=== PATIENT | female | born 1975 | race Caucasian/White ===

== ENCOUNTER → 2019-09-18 11:05 | Outpatient (BNVA) | payer OTHER, SELFPAY | PROVIDERS: Family Provider General Practice; PCP General Practice; Visit Provider Registered Nurse | DX: Z01.89 Encounter for other specified special examinations (principal) | CPT/HCPCS: 88175 ==

== ENCOUNTER 2019-12-23 13:30 | Outpatient (CLI) | payer OTHER, SELFPAY ==
--- NOTE | 2019-12-23 13:38 | MM_ITS ---
WS: [id number] BILATERAL DIGITAL SCREENING MAMMOGRAPHY WITH CAD CLINICAL INFORMATION: SCREENING HISTORY: Screening mammogram. No current complaints. COMPARISON: None. TECHNIQUE: Bilateral CC and MLO views. FINDINGS: Scattered fibroglandular densities bilaterally. No suspicious focal mass, asymmetry, calcifications, or architectural distortion. No evidence of malignancy. MM/[id number] IMPRESSION: BI-RADS: 1-Negative FOLLOW UP: 1 Year Follow-up Recommend return to annual screening mammography.
== END 2019-12-23 13:31 | disposition home or self-care (01) ==
LOC: RADSHAW 13:37
PROVIDERS: PCP Registered Nurse; Visit Provider Registered Nurse
DX: Z12.31 Encounter for screening mammogram for malignant neoplasm of breast (principal)
CPT/HCPCS: 77067

== ENCOUNTER → 2021-02-18 11:23 | Outpatient (BNVA) | payer OTHER, SELFPAY | PROVIDERS: PCP Registered Nurse; Visit Provider Surgery Plastic and Reconstructive Surgery | DX: R53.83 Other fatigue (principal) | CPT/HCPCS: 80053; 80061; 82306; 82607; 83036; 84436; 84443; 84480; 85025 ==

== ENCOUNTER → 2021-05-18 11:22 | Outpatient (BNVA) | payer OTHER, SELFPAY | PROVIDERS: PCP Registered Nurse; Visit Provider Registered Nurse | DX: N39.0 Urinary tract infection, site not specified (principal); R39.9 Unspecified symptoms and signs involving the genitourinary system; B35.1 Tinea unguium; A49.9 Bacterial infection, unspecified | CPT/HCPCS: 80053; 81000 ==

== ENCOUNTER 2022-04-18 14:38 | Outpatient (CLI) | payer OTHER, SELFPAY ==
--- NOTE | 2022-04-18 15:07 | MM_ITS ---
WS: [id number] BILATERAL 3D TOMOSYNTHESIS DIGITAL SCREENING MAMMOGRAPHY WITH CAD CLINICAL INFORMATION: SCREENING HISTORY: Screening mammogram. No current complaints. COMPARISON: December 23, 2019 TECHNIQUE: Bilateral CC and MLO views. FINDINGS: Interval bilateral breast reduction. Scattered fibroglandular densities bilaterally. Coarse calcifications both breasts likely due to fat necrosis from interval breast reduction. No suspicious focal mass, asymmetry, calcifications, or arch itectural distortion. No evidence of malignancy. MM/[place] [id number] IMPRESSION: BI-RADS: 2-Benign FOLLOW UP: 1 Year Follow-up Recommend return to annual screening mammography.
== END 2022-04-18 14:39 | disposition home or self-care (01) ==
PROVIDERS: PCP Registered Nurse; Visit Provider Registered Nurse
DX: Z12.31 Encounter for screening mammogram for malignant neoplasm of breast (principal)
CPT/HCPCS: 77063; 77067

== ENCOUNTER → 2022-09-02 12:42 | Outpatient (BNVA) | payer OTHER, SELFPAY | PROVIDERS: PCP Registered Nurse; Visit Provider Podiatrist Foot & Ankle Surgery | DX: L60.3 Nail dystrophy (principal); B35.1 Tinea unguium | CPT/HCPCS: 36415; 80053 ==

== ENCOUNTER → 2022-10-07 08:45 | Outpatient (BNVA) | payer OTHER, SELFPAY | PROVIDERS: PCP Registered Nurse; Visit Provider Podiatrist Foot & Ankle Surgery | DX: B35.1 Tinea unguium (principal) | CPT/HCPCS: 36415; 80053 ==

== ENCOUNTER → 2023-06-06 09:55 | Outpatient (BNVA) | payer OTHER, SELFPAY | PROVIDERS: PCP Registered Nurse; Visit Provider Podiatrist Foot & Ankle Surgery | DX: L60.3 Nail dystrophy (principal); L60.0 Ingrowing nail | CPT/HCPCS: 11750; A6219 ==

== ENCOUNTER → 2023-06-20 09:38 | Outpatient (BNVA) | payer OTHER, SELFPAY | PROVIDERS: PCP Registered Nurse; Visit Provider Podiatrist Foot & Ankle Surgery | DX: L60.0 Ingrowing nail (principal) | CPT/HCPCS: 99213 ==

== ENCOUNTER 2023-08-16 08:51 | Outpatient (CLI) | payer OTHER, SELFPAY ==
--- NOTE | 2023-08-16 08:55 | MM_ITS ---
WS: [id number] BILATERAL SCREENING DIGITAL TOMOSYNTHESIS MAMMOGRAM WITH CAD HISTORY: SCREENING COMPARISON: 12/23/2019 and 04/18/2022 Bilateral CC and MLO views with tomosynthesis and synthetic mammography submitted. Computer aided det ection analyzed. Breast composition: There are scattered areas of fibroglandular density. No suspicious masses, microc alcifications or architectural distortion. There are numerous bilateral peripherally calcified masses within each breast. These are most consistent with oil cysts related to necrosis. Calcification avila en is increasing but still appears benign. IMPRESSION: MM/[place] [id number] BI-RADS: 2-Benign FOLLOW UP: 1 Year Follow-up
== END 2023-08-16 08:52 | disposition home or self-care (01) ==
LOC: RAD 08:52
PROVIDERS: PCP Registered Nurse; Visit Provider Registered Nurse
DX: Z12.31 Encounter for screening mammogram for malignant neoplasm of breast (principal); R92.323 Mammographic fibroglandular density, bilateral breasts; R92.1 Mammographic calcification found on diagnostic imaging of breast
CPT/HCPCS: 77063; 77067

== ENCOUNTER 2024-01-13 16:15 | Emergency (ER) | payer OTHER, SELFPAY ==
[2024-01-13 16:32] VITALS: BP 92/69; PULSE 77; RESP 17; TEMP 36.6; O2SAT 94; BMI 32.9
--- NOTE | 2024-01-13 16:37 | ECG_ITS ---
[facility] Test Date: 2024-01-13 Pat Name: Suri Bhandari Department: Room: Gender: Female Pattern Marker: : 1975 Requested By: Rylee Davison Order Number: [id number] Raúl MD: Derek Cadet M.D. Measurements Intervals [place] Rate: 68 P: 14 IN: 145 QRS: 44 QRSD: 85 T: -5 QT: 370 QTc: 395 Interpretive Statements SINUS RHYTHM POSSIBLE RIGHT VENTRICULAR CONDUCTION DELAY [RSR (QR) IN V1/V2] NONSPECIFIC T-WAVE ABNORMALITY No previous ECG available for comparison Electronically Signed On 01-14-2024 19:21:14 CDT by Derek Cadet M.D. [id number]
--- NOTE | 2024-01-13 16:48 | ED_ITS ---
HPI - Allergic Reaction 2 General: Chief complaint: Allergic Reaction Stated complaint: possible allergic reaction Time Seen by Provider: 01/13/24 16:29 Source: patient Mode of arrival: ambulatory Limitations: no limitations History of Present Illness: HPI narrative: 48-year-old female states that she fell like she had allergic reaction today she states started to feel flushed she had some hives and started feeling lightheaded and folic she was going to pass out. states that she had almost fell and had caught her she had been out in the heat today as well states she is feeling improved currently but still having some lightheadedness. She never did fully pass out she denies any chest pain denies any headache Associated symptoms: Deny abdominal pain, nausea or vomiting Review of Systems 2 Const: Denies: fever(s), chills, body aches or change in appetite Eyes: Denies: blurry vision or eye discomfort ENMT: Denies: throat pain or dental pain Card: Reports: pre-syncope; Denies: chest pain Resp: Denies: dyspnea GI: Denies: abdominal pain, nausea, vomiting or diarrhea Musc: Denies: neck pain or back pain Skin/Breast: Denies: rash Neuro: Denies: headache(s) PFSH ED 2 PFSH: Surgical History History of cholecystectomy History of tubal ligation Family History Other Cancer Social History Alcohol intake: never Substance/Drug Use: never Adopted: No Caregiver/support person: No Lives independently: Yes Household members: spouse Marital status: service: No Current occupational status: unemployed and other Details: house Current occupational exposures/hazards: No Sexually active: Yes Do you think of yourself as: Straight/Heterosexual Current gender identity: Female Physical Exam 2 Const: COMMON NORMALS: no acute distress, patient oriented x3 and healthy appearing HENMT: COMMON NORMALS: normocephalic and atraumatic HEAD & SCALP: n ormocephalic and atraumatic Eye: COMMON NORMALS: Equal, round and reactive pupils present and EOMs intact bilaterally PUPIL: Yes Equal, round and reactive pupils present Neck/C-Spine: COMMON NORMALS: full ROM and supple Chest: COMMONS NORMALS: normal inspection of the chest and normal palpation of entire chest wall Resp: COMMON NORMALS: normal respiratory effort, No retractions, No use of accessory muscles and clear to auscultation bilaterally AUSCULTATION: clear to auscultation bilaterally Cardio: COMMON NORMALS: regular rate, regular rhythm and No murmurs present (Cardio) RATE: regular rate RHYTHM: regular rhythm GI: COMMON NORMALS: Normal to inspection, nondistended, normoactive bowel sounds present, Soft to palpation, non-tender and no masses PALPATION: Yes Soft to palpation Extremity: COMMON NORMALS: normal to inspection and full ROM Neuro: COMMON NORMALS: patient oriented x3, moves all extremities and no focal motor deficits Psych: COMMON NORMALS: mental status grossly normal, Normal thought process present and cooperative THOUGHT PROCESS: Normal thought process present Skin: COMMON NORMALS: no rashes or lesions noted and no wounds GENERAL SKIN EXAM: no rashes or lesions noted Course 2 Vital Signs: Vital signs: Vital Signs Temperature 97.9 F 01/13/24 16:32 Pulse Rate 67 01/13/24 18:11 Respiratory Rate 16 01/13/24 18:11 Blood Pressure 99/64 01/13/24 18:11 Pulse Oximetry 94 01/13/24 18:11 Oxygen Delivery Me thod Room Air 01/13/24 18:11 MDM - Allergic Reaction Medical Decision Making Presents here with a near syncopal event blood work here is normal patient is well-appearing here she feels much improved she is able to ambulate the halls without any difficulty. This could be from heat exposure I do not appreciate any rash here could have been allergic reaction though since she had a rash earlier is stable for discharge she is to drink plenty of fluids follow-up with PCP and return if worsening she understands agrees to plan Medical Records I reviewed the patient's medical records. Lab Data I reviewed the patient's lab results. 01/13/24 16:58 01/13/24 16:58 Laboratory Results WBC 9.08 10^3/uL (3.29-11.43) 01/13/24 16:58 RBC 4.85 10^6/uL (3.85-5.65) 01/13/24 16:58 Hgb 14.70 g/dL (11.27-16.99) 01/13/24 16:58 Hct 43.8 % (36-47) 01/13/24 16:58 MCV 90.3 fl (85-98) 01/13/24 16:58 MCH 30.3 pg (27-33) 01/13/24 16:58 MCHC 33.6 g/dL (30-55) 01/13/24 16:58 RDW 12.3 % (12.1-15.1) 01/13/24 16:58 Plt Count 219 10^3/cmm (157-399) 01/13/24 16:58 MPV 8.7 fL (7.4-10.4) 01/13/24 16:58 Neut % (Auto) 68.0 % 01/13/24 16:58 Lymph % (Auto) 20.5 % 01/13/24 16:58 [place] % (Auto) 6.1 % 01/13/24 16:58 Eos % (Auto) 4.5 % 01/13/24 16:58 Baso % (Auto) 0.6 % 01/13/24 16:58 Neut # (Auto) 6.18 10^3/uL (1.8-7.7) 01/13/24 16:58 Lymph # (Auto) 1.9 10^3/uL (0.8-4.8) 01/13/24 16:58 [place] # (Auto) 0.6 10^3/uL (0.2-0.9) 01/13/24 16:58 Eos # (Auto) 0.4 10^3/uL (0.0-0.8) 01/13/24 16:58 Baso # (Auto) 0.1 10^3/uL (0.0-0.1) 01/13/24 16:58 Nucleated RBC % (auto) 0 % 01/13/24 16:58 Nucleated RBCs # 0.0 /100WBC 01/13/24 16:58 Sodium 135 mmol/L (136-145) L 01/13/24 16:58 Potassium 4.3 mmol/L (3.5-5.1) 01/13/24 16:58 Chloride 103 mmol/L (98-107) 01/13/24 16:58 Carbon Dioxide 21 mmol/L (22-29) L 01/13/24 16:58 Anion Gap 15.3 (5-19) 01/13/24 16:58 BUN 17 mg/dL (6-20) 01/13/24 16:58 Creatinine 0.6 mg/dL (0.5-0.9) 01/13/24 16:58 GFR Calculation 107.2 mL/min (90-130) 01/13/24 16:58 Glucose 110 mg/dL (65-115) 01/13/24 16:58 POC Glucose 96 mg/dL (70-110) 01/13/24 18:06 Calculated Osmolality 282 mOsm/kg (285-295) L 01/13/24 16:58 Calcium 8.8 mg/dL (8.5-10.5) 01/13/24 16:58 Total Bilirubin 0.6 mg/dL (0.15-1.2) 01/13/24 16:58 AST 24 U/L (0-32) 01/13/24 16:58 ALT 25 U/L (0-33) 01/13/24 16:58 Alkaline Phosphatase 57 U/L (35-105) 01/13/24 16:58 Creatine Kinase 68 U/L (26-192) 01/13/24 16:58 Total Protein 6.9 g/dL (6.6-8.7) 01/13/24 16:58 Albumin 3.8 g/dL (3.5-5.2) 01/13/24 16:58 Globulin 3.1 g/dL (1.3-4.6) 01/13/24 16:58 All radiology interpretation(s) finalized by discharge EKG Data EKG 1: I personally reviewed and interpreted this EKG as follows: EKG interpretation date: 01/13/24 EKG interpretation time: 16:57 Interpretation: nsr hr [address] or t wave abnormalities qrs 85 qtc 387 Discharge Plan Discharge Patient Disposition: Home Clinical Impression: Near syncope Condition: Stable Prescriptions: No Action nitrofurantoin monohyd/m-cryst [Macrobid] 100 mg capsule 100 mg PO BID 5 Days Qty: 10 0RF Rx Instructions: must administer with a meal/food phentermine 37.5 mg capsule 37.5 mg PO DAILY Rx Instructions: must administer 30 minutes before or 1-2 hours after breakfast terbinafine HCl 250 mg tablet 250 mg PO DAILY 30 Days Qty: 30 2RF Discharge Orders: Discharge ED (Routine); Ordered 01/13/24 Ordered By: Rylee Davison Referrals: Cathleen Grimaldo FNP [Primary Care Provider] - Discharge Diet: Advance as tolerated Discharge Activity: Resume usual activity Patient Instructions: Near Syncope (ED) Coding Level of Care Code ED Technician for [place] [place]
[2024-01-13] MEDS: sodium chloride 0.9% 1,000 ML 999 ML IV ×2 (17:05→17:19)
[2024-01-13 17:16] LABS: Basophils # 0.1 10^3/uL (0.0-0.1); Basophils % 0.6 %; Eosinophils # 0.4 10^3/uL (0.0-0.8); Eosinophils % 4.5 %; Hematocrit 43.8 % (36-47); Lymphocytes # 1.9 10^3/uL (0.8-4.8); Lymphocytes % 20.5 %; Mean Corpuscular HGB Conc 33.6 g/dL (30-55); Mean Corpuscular Hemoglobin 30.3 pg (27-33); Mean Corpuscular Volume 90.3 fl (85-98); Mean Platelet Volume 8.7 fL (7.4-10.4); Monocytes # 0.6 10^3/uL (0.2-0.9); Monocytes % 6.1 %; Neutrophils # 6.18 10^3/uL (1.8-7.7); Nucleated Red Blood Cells % 0 %; Platelet Count 219 10^3/cmm (157-399); Red Blood Count 4.85 10^6/uL (3.85-5.65); Red Cell Distribution Width 12.3 % (12.1-15.1); White Blood Count 9.08 10^3/uL (3.29-11.43)
[2024-01-13 17:37] LABS: Albumin Level 3.8 g/dL (3.5-5.2); Alkaline Phosphatase 57 U/L (35-105); Blood Urea Nitrogen 17 mg/dL (6-20); Calcium 8.8 mg/dL (8.5-10.5); Carbon Dioxide 21 mmol/L (22-29); Chloride 103 mmol/L (98-107); Creatine Phosphokinase 68 U/L (26-192); Creatinine Clr Calc Pharmacy 114.7667; Globulin 3.1 g/dL (1.3-4.6); Glomerular Filtration Rate 107.2 mL/min (90-130); Glucose 110 mg/dL (65-115); Osmolality Calculated 282 mOsm/kg (285-295); Sodium 135 mmol/L (136-145); Total Bilirubin 0.6 mg/dL (0.15-1.2); Total Protein 6.9 g/dL (6.6-8.7)
[2024-01-13 17:38] LABS: Alanine Aminotransferase 25 U/L (0-33); Anion Gap 15.3 (5-19); Aspartate Amino Transferase 24 U/L (0-32); Potassium 4.3 mmol/L (3.5-5.1)
[2024-01-13 18:11] VITALS: BP 108/67; BP 120/73; BP 99/64; PULSE 67; PULSE 76; PULSE 83; RESP 16; O2SAT 94
[2024-01-13 18:12] LABS: Glucose Point of Care 96 mg/dL (70-110)
[2024-01-13 18:34] VITALS: BP 109/66; PULSE 83; RESP 16; TEMP 36.6; O2SAT 94
== END 2024-01-13 18:29 | disposition home or self-care (01) ==
PROVIDERS: Emergency Provider Emergency Medicine; PCP Registered Nurse
DX: R55 Syncope and collapse (principal)
CPT/HCPCS: 36416; 80053; 82550; 82962; 85025; 93005; 99284; J7030

== ENCOUNTER → 2024-06-21 09:43 | Outpatient (BNVA) | payer OTHER, SELFPAY | PROVIDERS: PCP Registered Nurse; Visit Provider Registered Nurse | DX: Z13.6 Encounter for screening for cardiovascular disorders (principal); Z00.00 Encounter for general adult medical examination without abnormal findings | CPT/HCPCS: 80053; 80061; 85025 ==

== ENCOUNTER → 2025-05-02 08:05 | Outpatient (BNVA) | payer OTHER, SELFPAY | PROVIDERS: PCP Registered Nurse; Visit Provider Nurse Practitioner Family | DX: N39.0 Urinary tract infection, site not specified (principal) | CPT/HCPCS: 81000 ==